=== PATIENT | male | born 1980 | race Two or more races ===

== ENCOUNTER 2018-02-11 14:15 | Emergency (ER) | payer MEDICAID, OTHER ==
[~2018-02-11] VITALS: Ht 175.3 cm; Wt 70.3 kg
[2018-02-11] MEDS ORDERED: KETOROLAC TROMETH 30 MG/ML 1ML VIAL IV ONE (21:45)
[2018-02-11] MEDS ORDERED: SODIUM CHLORIDE 0.9% 1,000 ML IVB ONE (21:45)
[2018-02-11 22:26] LABS: Basophils # (auto) 0.1 uL; Basophils % (auto) 0.7 % (0.0-2.0); Eosinophils # (auto) 0 uL; Eosinophils % (auto) 0.1 % (0.0-7.0); Hematocrit 42.4 % (41.0-53.0); Hemoglobin 14.2 g/dL (13.5-17.5); Lymphocytes # (auto) 2.8 uL; Mean Corpuscular Hemoglobin 28.9 pg (28.0-32.0); Mean Corpuscular Hgb Conc. 33.6 g/dL (32.0-36.0); Mean Corpuscular Volume 86.2 fL (80.0-100.0); Monocytes # (auto) 1.1 uL; Monocytes % (auto) 6.8 % (0.0-12.0); Neutrophils # (auto) 11.6 uL; Neutrophils % (auto) 74.4 % (37.0-80.0); Nucleated Red Blood Cells % 0.1 %; Platelet Count (auto) 319 10^3/uL (140-450); Red Blood Cells 4.91 10^6/uL (4.5-5.90); Red Cell Distribution Width 12.9 % (11.8-14.3); White Blood Cell 15.5 10^3/uL (4.4-10.8)
[2018-02-11 22:47] LABS: Albumin 3.7 g/dL (3.4-5.0); BUN/Creatinine Ratio 7.6; Bilirubin, Total 0.4 mg/dL (0.2-1.0); CRP High Sensitivity 7.4 mg/dL (< 0.3); Calcium 8.9 mg/dL (8.5-10.1); Total Protein 8.8 g/dL (6.4-8.2)
[2018-02-11 23:01] VITALS: BP 116/84
[2018-02-11] MEDS ORDERED: CEFTRIAXONE SODIUM 2 GM in D5W 5% 50 ML IV ONE (23:30)
[2018-02-11] MEDS ORDERED: cefTRIAXone 1GM/10ml IVPUSH 20 ML IV ONE (23:33)
== END 2018-02-11 23:26 | disposition home or self-care (01) ==
LOC: ER 14:15
DX: J01.40 Acute pansinusitis, unspecified (principal); R42 Dizziness and giddiness
CPT/HCPCS: 36415; 70450; 70486; 71045; 80053; 85025; 86141; 87804; 94761; 96361; 96374; 96375; 99285; J0696; J1885; J7030; J7060